=== PATIENT | female | born 1955 | race Caucasian/White ===

== ENCOUNTER → 2018-12-23 | Outpatient (CLI) | payer OTHER ==
[~2018-12-23] MED LIST: ASPIRIN EC81 M1 PO; CYMBALTA60 MG; FLUZONE 2045 MCG/011; GABAPENTIN; PNEUMOVAX25 MCG/0.5
== END ==
LOC: M.RAD 12-08 08:09
DX: Z12.31 Encounter for screening mammogram for malignant neoplasm of breast (principal); Z13.820 Encounter for screening for osteoporosis; Z78.0 Asymptomatic menopausal state